=== PATIENT | female | born 1935 | race Two or more races ===

== ENCOUNTER → 2018-05-19 | Emergency (ER) | payer OTHER ==
[~2018-05-19] VITALS: Ht 157.5 cm; Wt 68.0 kg
[~2018-05-19] MED LIST: ASPIRIN81 MG; BUDESONIDE0.5 MG/2 M IH; CEFDINIR300 MG PO; COZAAR50 MG; HYDROCHLORIC A500 M1; MUCINEX DM ER1 EAC1 PO; SYNTHROID50 MCG; TESSALON PERLE100 MG PO; TROMBONEX CAPSU1 CAP; XOPENEX0.63 MG/3 IH; ZITHROMAX500 MG PO
== END | disposition home or self-care (01) ==
LOC: ER 15:59
DX: J22 Unspecified acute lower respiratory infection (principal); J11.1 Influenza due to unidentified influenza virus with other respiratory manifestations

== ENCOUNTER 2018-05-30 10:31 | Outpatient (CLI) | payer OTHER | END 2018-05-30 10:41 | disposition home or self-care (01) | LOC: RAD 10:31 | DX: R05 Cough (principal); J20.8 Acute bronchitis due to other specified organisms ==

== ENCOUNTER 2018-06-08 13:05 | Inpatient (IN) | payer OTHER ==
[~2018-06-08] VITALS: Ht 160 cm; Wt 59.0 kg
[2018-06-13] MEDS ORDERED: LEVAQUIN750 MG PO (09:55)
== END 2018-06-13 10:53 | disposition home or self-care (01) | DRG 194 ==
LOC: ER 13:05 → MEDI 17:53 → EDBD 17:53 → SEC-K 17:53 → MEDI 06-09 15:26
PROC: 3E0F7GC Introduction of Other Therapeutic Substance into Respiratory Tract, Via Natural or Artificial Opening (ICD-10-PCS; principal; 2018-06-08)
PROC: 4A033R1 Measurement of Arterial Saturation, Peripheral, Percutaneous Approach (ICD-10-PCS; 2018-06-08)
PROC: BB24ZZZ Computerized Tomography (CT Scan) of Bilateral Lungs (ICD-10-PCS; 2018-06-08)
PROC: B246ZZZ Ultrasonography of Right and Left Heart (ICD-10-PCS; 2018-06-08)
DX: J18.1 Lobar pneumonia, unspecified organism (principal); J91.8 Pleural effusion in other conditions classified elsewhere; J45.31 Mild persistent asthma with (acute) exacerbation; I10 Essential (primary) hypertension; E03.8 Other specified hypothyroidism

== ENCOUNTER 2019-12-19 11:42 | Emergency (ER) | payer OTHER ==
[~2019-12-19] VITALS: Ht 160 cm; Wt 59.0 kg
[~2019-12-19 11:42] MED LIST changes: +LEVAQUIN750 MG PO
[2019-12-19] MEDS ORDERED: ZESTRIL20 MG (12:08)
[2019-12-19] MEDS ORDERED: ZOCOR20 MG (12:08)
[2019-12-19] MEDS ORDERED: ARICEPT10 MG (12:09)
== END 2019-12-19 15:30 | disposition home or self-care (01) ==
LOC: ER 11:42
DX: S00.03XA Contusion of scalp, initial encounter (principal); W18.09XA Striking against other object with subsequent fall, initial encounter; Y93.89 Activity, other specified; Y92.018 Other place in single-family (private) house as the place of occurrence of the external cause; Y99.8 Other external cause status

== ENCOUNTER 2021-03-02 12:02 | Emergency (ER) | payer OTHER ==
[~2021-03-02] VITALS: Ht 157.5 cm; Wt 65.8 kg
[~2021-03-02 12:02] MED LIST changes: +ARICEPT10 MG; +ZESTRIL20 MG; +ZOCOR20 MG
[2021-03-02] MEDS ORDERED: MEMANTINE HCL10 MG PO (12:25)
[2021-03-02] MEDS ORDERED: LOSARTAN POTASS50 MG PO (12:25)
[2021-03-02] MEDS ORDERED: DONEPEZIL HCL10 MG PO (12:26)
[2021-03-02] MEDS ORDERED: SIMVASTATIN20 MG PO (12:26)
[2021-03-02] MEDS ORDERED: HYDROCHLOROTH12.5 MG PO (12:26)
[2021-03-02] MEDS ORDERED: LEVOTHYROXINE50 MCG PO (12:26)
== END 2021-03-02 13:43 | disposition home or self-care (01) ==
LOC: ER 12:02
DX: L03.116 Cellulitis of left lower limb (principal)